=== PATIENT | male | born 1975 | race African-American/Black ===

== ENCOUNTER 2019-01-23 13:51 | Emergency (ER) | payer OTHER ==
[2019-01-23] MEDS ORDERED: MECLIZINE HCL 25 MG TABLET PO ONE (14:10)
[2019-01-23] MEDS: NORMAL SALINE 1000 ML 1,000 ML IV PRN ×2 (14:18→15:18)
[2019-01-23 14:20] LABS: HEMATOCRIT 44.5 % (37.9-51.0); HEMOGLOBIN 15.5 g/dL (13.5-17.0); MEAN CORPUSCULAR HEMOGLOBIN 30.5 pg (27.0-33.4); MEAN CORPUSCULAR HGB CONC 34.7 g/dL (32.0-36.0); MEAN CORPUSCULAR VOLUME 88 fl (80-97); PLATELET COUNT 252 10^3/uL (150-450); RED BLOOD COUNT 5.06 10^6/uL (4.35-5.55); RED CELL DISTRIBUTION WIDTH 12.9 % (11.5-14.0); WHITE BLOOD COUNT 6.3 10^3/uL (4.0-10.5)
[2019-01-23 14:26] LABS: ALBUMIN 4.6 g/dL (3.5-5.0); ALKALINE PHOSPHATASE 74 U/L (38-126); ANION GAP 11 (5-19); ASPARTATE AMINO TRANSFERASE 36 U/L (17-59); BILIRUBIN,DIRECT 0.2 mg/dL (0.0-0.4); BILIRUBIN,TOTAL 0.8 mg/dL (0.2-1.3); BLOOD UREA NITROGEN 16 mg/dL (7-20); CALCIUM 9.9 mg/dL (8.4-10.2); CARBON DIOXIDE 25 mmol/L (22-30); CHLORIDE 101 mmol/L (98-107); CREATINE KINASE 251 U/L (55-170); GLUCOSE 127 mg/dL (75-110); POTASSIUM 3.8 mmol/L (3.6-5.0)
--- NOTE | 2019-01-23 14:29 | ER Document Report ---
ED Dizziness/Weakness - General Chief Complaint: Dizziness Stated Complaint: DIZZINESS Time Seen by Provider: 01/23/19 14:03 Notes: Healthy 43-year-old male with no medical problems presents to the emergency department with an acute episode of vertigo that occurred just prior to arrival. Patient is unable to open his eyes because he states that the room is spinning around him. Denies diplopia, does complain of right ear pain and headache that is over his right eye, frontal area that moves to his ear. Patient denies any previous history of dizziness or vertiginous episodes, denies any history of brain masses, denies any recent strenuous activity or dehydration, denies any tingling or paresthesias in any of his extremities, did complain of nausea but no vomiting. No LOC and patient did not strike his head. Per she initially found him sitting down on the ottoman and he slid down at the floor to a position of comfort. - Related Data Allergies/Adverse Reactions: ibuprofen [From Motrin] Allergy (Verified 01/23/19 14:12) Penicillins Allergy (Verified 01/23/19 14:12) Past Medical History - Social History Smoking Status: Never Smoker Family History: None Patient has suicidal ideation: No Patient has homicidal ideation: No - Past Medical History Cardiac Medical History: Reports: Hx Hypercholesterolemia, Hx Hypertension Review of Systems - Review of Systems Constitutional: See HPI EENT: See HPI Cardiovascular: No symptoms reported Respiratory: No symptoms reported Gastrointestinal: See HPI Genitourinary: No symptoms reported Male Genitourinary: No symptoms reported Musculoskeletal: No symptoms reported Skin: No symptoms reported Hematologic/Lymphatic: No symptoms reported Neurological/Psychological: See HPI Physical Exam - Vital signs Vitals: Temp Pulse Resp BP Pulse Ox 97.6 F 71 17 137/90 H 98 01/23/19 13:54 01/23/19 13:54 01/23/19 13:54 01/23/19 13:54 01/23/19 13:54 - Notes Notes: PHYSICAL EXAMINATION: Reviewed vital signs and charting by RN GENERAL: Alert, interacts well. Mild distress. HEAD: Normocephalic, atraumatic. EYES: Patient cannot tolerate opening his eyes at this time will reassess after he is medicated ENT: Oral mucosa moist, tongue midline. NECK: Full range of motion. Trachea midline. LUNGS: Clear to auscultation bilaterally, no wheezes, rales, or rhonchi. No respiratory distress. HEART: Regular rate and rhythm. No murmur ABDOMEN: soft, non-tender. No distention. Bowel sounds present EXTREMITIES: Moves all 4 extremities spontaneously. No edema, No cyanosis. PSYCH: Normal affect, normal mood. SKIN: Warm, dry, normal turgor. No rashes or lesions noted. Course - Re-evaluation Re-evalutation: 01/23/19 14:31 Patient presents with significant vertigo. No prior history but says that his mother had it. I have ordered meclizine 50 mg p.o. once and normal saline 2 L IV. Patient did receive Zofran in triage. Labs ordered per nursing protocol. 01/23/19 17:15 All lab work within normal limits, EKG showed sinus rhythm with a first-degree block. Patient was given meclizine with no resolution then given Valium 5 mg IV once. Patient received IV fluids. Campbell's maneuver was performed several times. Patient states that he did feel slightly better and he is now able to lift his head up and keep his eyes open. On initial presentation he could not open his eyes or move from the position he was in. I spoke with Dr. Graham, ENT on-call, who agrees that this most likely represents a vestibular neuritis and it is supportive care [place]. Plan is to give the patient in additional Valium 5 mg IV once, methylprednisolone 125 mg IV once, will give him a little time for symptoms to improve, and he will discharge home with a Solu-Medrol Dosepak, meclizine prescription, and strict follow-up to his medical in the morning. 01/23/19 18:19 Patient attempted to stand up but is still significantly vertiginous, he states that he still wants to go home. I had a lengthy discussion with him and with shared decision-making with the family he has good support at home with good follow-up so he is stable for discharge. - Vital Signs Vital signs: Temp Pulse Resp BP Pulse Ox 97.6 F 71 17 137/90 H 98 01/23/19 13:54 01/23/19 13:54 01/23/19 13:54 01/23/19 13:54 01/23/19 13:54 - Laboratory Result Diagrams: 01/23/19 13:29 01/23/19 13:29 Laboratory results interpreted by me: 01/23/19 01/23/19 01/23/19 13:29 13:29 16:36 Seg Neuts % (Manual) 35 L Lymphocytes % (Manual) 58 H Glucose 127 H Creatine Kinase 251 H Urine Ketones TRACE H Urine Blood SMALL H Discharge - Discharge Clinical Impression: Vertigo Headache Qualifiers: Headache type: unspecified Headache chronicity pattern: acute headache Intractability: not intractable Qualified Code(s): R51 - Headache Acute vestibular neuritis Qualifiers: Laterality: right Qualified Code(s): H81.21 - Vestibular neuronitis, right ear Condition: Good Disposition: HOME, SELF-CARE Additional Instructions: You were seen in the emergency department this afternoon for suspected acute vestibular neuritis. You were given antinausea medication and meclizine. You are also given Valium to help with your symptoms. The best thing you can do is go home and rest until you go to medical first thing in the morning. You can continue to take Tylenol 975 mg as needed every 6 hours for headache and take meclizine 50 mg every 4-6 hours. You have also been sent home with some Zofran. You can take 1 tablet every [address] it under your tongue and will dissolve. Please return to the emergency department if you develop worsening, severe headache, your vertigo gets severe again, or you have any other concerning symptoms. Prescriptions: Meclizine HCl 25 mg PO Q6H PRN #30 tab.chew PRN Reason: Methylprednisolone [Medrol Dosepack (4 mg/Tab) 21 Tab/Dosepak] 21 tab PO ASDIR PRN 6 Days dspk PRN Reason: Methylprednisolone [Medrol Dosepack (4 mg/Tab) 21 Tab/Dosepak] 21 tab PO ASDIR PRN 6 Days dspk PRN Reason: Forms: Return to Work
[2019-01-23] MEDS ORDERED: ACETAMINOPHEN 325 MG TABLET PO ONE (14:32)
[2019-01-23 14:38] LABS: CREATINE KINASE MB 2.51 ng/mL (<4.55)
[2019-01-23 14:39] LABS: TROPONIN I < 0.012 ng/mL
[2019-01-23 14:45] LABS: ABSOLUTE LYMPHOCYTES# (MANUAL) 3.7 10^3/uL (0.5-4.7); ABSOLUTE MONOCYTES # (MANUAL) 0.3 10^3/uL (0.1-1.4); BASOPHILS % (MANUAL) 1 % (0-2); EOSINOPHILS % (MANUAL) 1 % (0-6); LYMPHOCYTES % (MANUAL) 58 % (13-45); MONOCYTES % (MANUAL) 5 % (3-13); SEGMENTED NEUTROPHILS % (MAN) 35 % (42-78); TOTAL CELLS COUNTED 100
[2019-01-23 14:46] LABS: PLATELET COMMENT ADEQUATE; PLATELET LARGE PRESENT
[2019-01-23 14:47] LABS: POIKILOCYTOSIS 1+; TEAR DROP CELLS 1+
[2019-01-23] MEDS ORDERED: DIAZEPAM INJ 10 MG/2 ML DISP.SYRIN IV ONE ×2 (15:11→17:29)
[2019-01-23] MEDS ORDERED: ONDANSETRON HCL INJ/PF 4 MG/2 ML SDV IV ONE ×2 (15:13→17:30)
[2019-01-23 17:03] LABS: APPEARANCE,URINE CLEAR; BILIRUBIN,URINE NEGATIVE (NEGATIVE); COLOR,URINE YELLOW; GLUCOSE, URINE NEGATIVE (NEGATIVE); KETONES,URINE TRACE mg/dL (NEGATIVE); LEUKOCYTE ESTERASE,URINE NEGATIVE (NEGATIVE); NITRITE,URINE NEGATIVE (NEGATIVE); PROTEIN,URINE NEGATIVE (NEGATIVE); UROBILINOGEN,URINE NEGATIVE mg/dL (<2.0)
[2019-01-23] MEDS ORDERED: ONDANSETRON ODT 4 MG TAB (6 TAB/ER DISP) PO PRN (17:32)
[2019-01-23] MEDS ORDERED: METHYLPREDNISOLONE INJ 125 MG/2 ML SDV IV ONE (18:00)
--- NOTE | 2019-01-23 18:05 | EKG REPORT ---
SEVERITY:- ABNORMAL ECG - SINUS RHYTHM FIRST DEGREE AV BLOCK : Confirmed by: Lyn Omer 23-Jan-2019 18:04:21
[2019-01-23 18:52] VITALS: BP 133/79
== END 2019-01-23 18:52 | disposition home or self-care (01) ==
LOC: ER 13:51
DX: H81.21 Vestibular neuronitis, right ear (principal); R51 Headache; H92.01 Otalgia, right ear; I10 Essential (primary) hypertension
CPT/HCPCS: 93005; 36415; 82553; 82550; 85025; 80053; 81001; 84484; 93010; J3360; J2930; J2405; J7030